=== PATIENT | male | born 1955 | race American Indian/Alaskan Native ===

== ENCOUNTER 2018-04-28 11:29 | Emergency (ER) | payer SELFPAY ==
--- NOTE | 2018-04-28 12:09 | Emergency Department Report ---
ED Chest Pain HPI - General Chief Complaint: Chest Pain Stated Complaint: CHEST PAIN Time Seen by Provider: 04/28/18 11:55 Source: patient Mode of arrival: Ambulatory Limitations: No Limitations - History of Present Illness Initial Comments: Patient is 63 years old male with history of coronary artery disease status post 3 stents, hypertension and diabetes. Patient presented to the ER complaining of left sided chest pain, heaviness in nature radiating to his neck and left upper extremity. Patient stated that he was walking when the symptoms started this morning. Symptoms also associated with sweating and nausea but no vomiting. Patient denied any fever or cough. Patient stated that he took 4 baby aspirin and 1 nitroglycerin and that did help his pain. Patient stated that his personal care aide nine months ago and he does not have a personal care aide at this moment. -: This morning Onset: during exertion Pain Location: left chest Pain Radiation: LUE, neck Severity scale (0 -10): 6 Quality: heaviness Consistency: constant Improves With: nitroglycerin Treatments Prior to Arrival: aspirin, nitroglycerin - Related Data Allergies Allergy/AdvReac Type Severity Reaction Status Date / Time latex Allergy Rash Verified 04/28/18 11:38 meperidine [From Demerol] Allergy Rash Verified 04/28/18 11:38 methylphenidate Allergy Unknown Verified 04/28/18 11:38 [From Ritalin] zolpidem [From Ambien] Allergy Unknown Verified 04/28/18 11:38 iv dye Allergy Anaphylaxis Uncoded 04/28/18 11:38 Heart Score - HEART Score History: Moderately suspicious EKG: Non-specific Age: 45-65 Risk factors: > 3 risk factors or hx of atherosclerotic disease Troponin: < normal limit HEART Score: 5 - Critical Actions Critical Actions: 4-6 pts:12-16.6% risk of adverse cardiac event. Should be admitted ED Review of Systems ROS: Stated complaint: CHEST PAIN Other details as noted in HPI Comment: All other systems reviewed and negative Constitutional: denies: chills, fever ENT: denies: ear pain, throat pain Cardiovascular: chest pain. denies: palpitations, dyspnea on exertion, orthopnea Gastrointestinal: denies: abdominal pain, nausea, vomiting, diarrhea, constipation, hematemesis, hematochezia Musculoskeletal: denies: back pain, joint swelling, arthralgia Neurological: denies: headache, weakness, numbness, paresthesias, confusion ED Past Medical Hx - Past Medical History Previous Medical History?: Yes Hx Hypertension: Yes Hx Diabetes: Yes Additional medical history: neuropathy. high cholestrol. enlarged prostate - Surgical History Past Surgical History?: Yes Hx Coronary Stent: Yes (x 3) - Social History Smoking Status: Never Smoker Substance Use Type: None ED Physical Exam - General Limitations: No Limitations General appearance: alert, in no apparent distress - Head Head exam: Present: atraumatic, normocephalic, normal inspection - Eye Eye exam: Present: normal appearance, PERRL - ENT ENT exam: Present: normal exam, normal orophraynx, mucous membranes moist - Neck Neck exam: Present: normal inspection, full ROM. Absent: tenderness, meningismus, lymphadenopathy, thyromegaly - Respiratory Respiratory exam: Present: normal lung sounds bilaterally. Absent: respiratory distress, wheezes, rales, rhonchi, stridor, chest wall tenderness, accessory muscle use, decreased breath sounds, prolonged expiratory - Cardiovascular Cardiovascular Exam: Present: regular rate, normal rhythm, normal heart sounds - GI/Abdominal GI/Abdominal exam: Present: soft, normal bowel sounds. Absent: distended, tenderness, guarding, rebound, rigid, bruit, pulsatile mass, hernia - Extremities Exam Extremities exam: Present: normal inspection, full ROM, normal capillary refill. Absent: pedal edema, calf tenderness - Back Exam Back exam: Present: normal inspection, full ROM. Absent: tenderness, CVA tenderness (R), CVA tenderness (L), muscle spasm, paraspinal tenderness, vertebral tenderness, rash noted - Neurological Exam Neurological exam: Present: alert, oriented X3, CN II-XII intact, normal gait, reflexes normal - Skin Skin exam: Present: warm, intact, normal color ED Course Vital Signs 04/28/18 11:38 Temperature 98.6 F Pulse Rate 94 H Respiratory 18 Rate Blood Pressure 150/93 O2 Sat by Pulse 97 Oximetry ED Medical Decision Making - Lab Data Result diagrams: 04/28/18 13:12 04/28/18 13:12 - EKG Data -: EKG Interpreted by Dc EKG shows normal: sinus rhythm Rate: normal - EKG Data Interpretation: no acute changes - Radiology Data Radiology results: report reviewed Chest x-ray is unremarkable. - Medical Decision Making Patient is 63 years old male with history of coronary artery disease status post 3 stents, hypertension and diabetes. Patient presented to the ER complaining of left sided chest pain, heaviness in nature radiating to his neck and left upper extremity. Patient stated that he was walking when the symptoms started this morning. Symptoms also associated with sweating and nausea but no vomiting. Patient denied any fever or cough. Patient stated that he took 4 baby aspirin and 1 nitroglycerin and that did help his pain. Patient stated that his personal care aide nine months ago and he does not have a personal care aide at this moment. Patient EKG is nonspecific with no ST elevation. Chest x-ray is negative. First set of cardiac enzymes is negative. Patient stated that his pain is after morphine. I discussed the patient is Dr. Brasher, he agreed to admit the patient to medical service. Critical Care Time: Yes Critical care time in (mins) excluding proc time.: 30 Critical care attestation.: If time is entered above; I have spent that time in minutes in the direct care of this critically ill patient, excluding procedure time. ED Disposition Clinical Impression: Chest pain, Acute coronary syndrome Disposition: OP ADMIT IP TO THIS HOSP Is pt being admited?: Yes Condition: Stable Instructions: Chest Pain (ED)
[2018-04-28] MEDS ORDERED: MORPHINE IV ONE ×2 (13:18→15:56)
[2018-04-28] MEDS ORDERED: ZOFRAN IV ONE (13:18)
[2018-04-28 13:34] LABS: Basophils # (Auto) 0.1 K/mm3 (0.0-0.1); Basophils % (Auto) 1.2 % (0.0-1.8); Eosinophils # (Auto) 0.2 K/mm3 (0.0-0.4); Eosinophils % (Auto) 3.2 % (0.0-4.3); Hematocrit 36.6 % (35.5-45.6); Hemoglobin 11.7 gm/dl (11.8-15.2); Lymphocytes # (Auto) 1.4 K/mm3 (1.2-5.4); Lymphocytes % (Auto) 24.4 % (13.4-35.0); Mean Corpuscular HGB Conc 32 % (32-34); Monocytes # (Auto) 0.4 K/mm3 (0.0-0.8); Monocytes % (Auto) 6.8 % (0.0-7.3); Platelet Count 139 K/mm3 (140-440); Red Blood Count 5.25 M/mm3 (3.65-5.03); Red Cell Distribution Width 19.3 % (13.2-15.2)
[2018-04-28 13:41] LABS: INR 0.91 (0.87-1.13)
[2018-04-28 13:42] LABS: Partial Thromboplastin Time 26.9 Sec. (24.2-36.6)
[2018-04-28 13:50] LABS: Mean Corpuscular Hemoglobin 22 pg (28-32); Mean Corpuscular Volume 70 fl (84-94)
[2018-04-28 14:11] LABS: Alanine Aminotransferase 12 units/L (7-56); Albumin 4.2 g/dL (3.9-5); BUN/Creatinine Ratio 13; Bilirubin,Direct < 0.2 mg/dL (0-0.2); Blood Urea Nitrogen 13 mg/dL (9-20); Calcium 8.8 mg/dL (8.4-10.2); Hemolysis Index 4
--- NOTE | 2018-04-28 14:19 | XRay Report ---
FINAL REPORT EXAM: XR CHEST 1V AP HISTORY: chest pain TECHNIQUE: Single, portable chest x-ray. PRIORS: None. FINDINGS: Cardiac and mediastinal silhouette within normal limits. Lungs are normally expanded. No significant vascular congestion. No focal consolidation or apparent pneumothorax. Bony thorax grossly unremarkable. IMPRESSION: 1. No acute findings.
[2018-04-28] MEDS ORDERED: PROTONIX PO ONE (14:24)
[2018-04-28 17:43] VITALS: BP 143/80
--- NOTE | 2018-04-28 18:30 | Consultation ---
History of Present Illness - History of Present Illness - History of Present Illness Initial Comments: Patient is 63 years old male with history of coronary artery disease status post 3 stents, hypertension and diabetes. Patient presented to the ER complaining of left sided chest pain, heaviness in nature radiating to his neck and left upper extremity. Patient stated that he was walking when the symptoms started this morning. Symptoms also associated with sweating and nausea but no vomiting. Patient denied any fever or cough. Patient stated that he took 4 baby aspirin and 1 nitroglycerin and that did help his pain. 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 -: This morning Onset: during exertion Pain Location: left chest Pain Radiation: LUE, neck Severity scale (0 -10): 6 Quality: heaviness Consistency: constant Improves With: nitroglycerin Treatments Prior to Arrival: aspirin, nitroglycerin - Related Data Allergies Allergy/AdvReac Type Severity Reaction Status Date / Time latex Allergy Rash Verified 04/28/18 11:38 meperidine [From Demerol] Allergy Rash Verified 04/28/18 11:38 methylphenidate Allergy Unknown Verified 04/28/18 11:38 [From Ritalin] zolpidem [From Ambien] Allergy Unknown Verified 04/28/18 11:38 iv dye Allergy Anaphylaxis Uncoded 04/28/18 11:38 Heart Score - HEART Score History: Moderately suspicious EKG: Non-specific Age: 45-65 Risk factors: > 3 risk factors or hx of atherosclerotic disease Troponin: < normal limit HEART Score: 5 - Critical Actions Critical Actions: 4-6 pts:12-16.6% risk of adverse cardiac event. Should be admitted ED Review of Systems ROS: Stated complaint: CHEST PAIN Other details as noted in HPI Comment: All other systems reviewed and negative Constitutional: denies: chills, fever ENT: denies: ear pain, throat pain Cardiovascular: chest pain. denies: palpitations, dyspnea on exertion, orthopnea Gastrointestinal: denies: abdominal pain, nausea, vomiting, diarrhea, constipation, hematemesis, hematochezia Musculoskeletal: denies: back pain, joint swelling, arthralgia Neurological: denies: headache, weakness, numbness, paresthesias, confusion ED Past Medical Hx - Past Medical History Previous Medical History?: Yes Hx Hypertension: Yes Hx Diabetes: Yes Additional medical history: neuropathy. high cholestrol. enlarged prostate - Surgical History Past Surgical History?: Yes Hx Coronary Stent: Yes (x 3) - Social History Smoking Status: Never Smoker Substance Use Type: None Medications and Allergies Allergies Allergy/AdvReac Type Severity Reaction Status Date / Time latex Allergy Rash Verified 04/28/18 11:38 meperidine [From Demerol] Allergy Rash Verified 04/28/18 11:38 methylphenidate Allergy Unknown Verified 04/28/18 11:38 [From Ritalin] zolpidem [From Ambien] Allergy Unknown Verified 04/28/18 11:38 iv dye Allergy Anaphylaxis Uncoded 04/28/18 11:38 Home Medications Medication Instructions Recorded Confirmed Last Taken Type Pantoprazole [Protonix] 40 mg PO QDAY #15 tablet 04/28/18 Unknown Rx Review of Systems Constitutional: no weight loss, no weight gain, no fever, no chills Ears, nose, mouth and throat: no ear pain, no ear discharge, no tinnitis, no decreased hearing, no nose pain Cardiovascular: chest pain, no orthopnea, no palpitations, no rapid/irregular heart beat, no edema Respiratory: no cough, no cough with sputum, no excessive sputum, no hemoptysis Gastrointestinal: no abdominal pain, no nausea, no vomiting, no diarrhea, no constipation Genitourinary Male: no dysuria, no hematuria, no flank pain, no discharge, no urinary frequency, no nocturia Rectal: no pain, no incontinence, no bleeding Musculoskeletal: no neck stiffness, no neck pain, no shooting arm pain, no arm numbness/tingling, no low back pain, no shooting leg pain Integumentary: no rash, no pruritis, no redness, no sores, no wounds, no jaundice Neurological: no head injury, no transient paralysis, no paralysis, no weakness , no numbness, no tingling Psychiatric: no anxiety, no memory loss, no change in sleep habits, no sleep disturbances, no insomnia Endocrine: no cold intolerance, no heat intolerance, no polyphagia, no excessive thirst, no polydipsia, no polyuria Hematologic/Lymphatic: no easy bruising, no easy bleeding, no lymphadenopathy, no lymphedema Allergic/Immunologic: no urticaria Exam - Constitutional Vitals: Temp Pulse Resp BP Pulse Ox 98.6 F 82 18 143/80 97 04/28/18 11:38 04/28/18 17:41 04/28/18 17:41 04/28/18 17:41 04/28/18 11:38 General appearance: Present: no acute distress, well-nourished - EENT Eyes: Present: PERRL ENT: hearing intact, clear oral mucosa - Neck Neck: Present: supple, normal ROM - Respiratory Respiratory effort: normal Respiratory: bilateral: CTA - Cardiovascular Heart Sounds: Present: S1 & S2. Absent: rub, click - Extremities Extremities: pulses symmetrical, No edema Peripheral Pulses: within normal limits - Abdominal General gastrointestinal: Present: soft, non-tender, non-distended, normal bowel sounds Male genitourinary: Present: normal - Integumentary Integumentary: Present: clear, warm, dry - Musculoskeletal Musculoskeletal: gait normal, strength equal bilaterally - Psychiatric Psychiatric: appropriate mood/affect, intact judgment & insight - Neurologic Neurologic: CNII-XII intact, moves all extremities Results - Labs CBC & Chem 7: 04/28/18 13:12 04/28/18 13:12 Labs: Abnormal lab results 04/28/18 04/28/18 Range/Units 13:12 13:12 RBC 5.25 H (3.65-5.03) M/mm3 Hgb 11.7 L (11.8-15.2) gm/dl MCV 70 L (84-94) fl MCH 22 L (28-32) pg RDW 19.3 H (13.2-15.2) % Plt Count 139 L (140-440) K/mm3 Glucose 278 H (75-100) mg/dL Assessment and Plan - Patient Problems (1) Atypical chest pain Current Visit: Yes Status: Acute (2) GERD (gastroesophageal reflux disease) Current Visit: Yes Status: Acute Qualifiers: Esophagitis presence: without esophagitis Qualified Code(s): K21.9 - Gastro -esophageal reflux disease without esophagitis Plan to address problem: PPI therapy,
[2018-04-28] MEDS ORDERED: HumuLIN R IV ONE (19:00)
== END 2018-04-28 19:19 | disposition admitted as inpatient to this hospital (09) ==
LOC: ED 11:29
DX: R07.89 Other chest pain (principal); K21.9 Gastro-esophageal reflux disease without esophagitis; I24.9 Acute ischemic heart disease, unspecified; I10 Essential (primary) hypertension; E11.9 Type 2 diabetes mellitus without complications; E78.00 Pure hypercholesterolemia, unspecified; G62.9 Polyneuropathy, unspecified; Z91.040 Latex allergy status; Z88.8 Allergy status to other drugs, medicaments and biological substances; Z91.041 Radiographic dye allergy status; Z88.5 Allergy status to narcotic agent; Z88.9 Allergy status to unspecified drugs, medicaments and biological substances
CPT/HCPCS: 36415; 71045; 80048; 80074; 84484; 85025; 85379; 85610; 85730; 93005; 93010; 96374; 96375; 96376; 99291; J2270; J2405